=== PATIENT | male | born 1995 | race Caucasian/White ===

== ENCOUNTER 2017-07-31 12:11 | Emergency (ER) | payer BC ==
[2017-07-31] MEDS ORDERED: HYDROmorphone 0.5 MG/0.5 ML SYRINGE IVPUSH ONE (12:22)
[2017-07-31] MEDS ORDERED: Ondansetron 4 MG/2 ML SDV IVPUSH ONE (12:22)
[2017-07-31] MEDS ORDERED: Sodium Chloride 0.9% 10 ML Syringe FLUSH PRN (12:24)
--- NOTE | 2017-07-31 12:28 | EDM.PDOC ---
ED HPI GENERAL MEDICAL PROBLEM - General Chief Complaint: Upper Extremity Injury/Pain Stated Complaint: SHOULDER DISLOCATION Time Seen by Provider: 07/31/17 12:18 Source of Information: Reports: Patient History Limitations: Reports: No Limitations - History of Present Illness INITIAL COMMENTS - FREE TEXT/NARRATIVE: Patient is a 22-year-old male with a history of right shoulder dislocations presents to the ED complaining of right shoulder dislocated. 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 This occurred at approximately 11:00. There was no trauma associated with this incident. He has been evaluated by orthopedic surgeon with suggestion and have the surgery. States her some light tingling noted to the upper arm. He is able to flex and extend his wrists, alt his thumb and hitchhiker position against resistance, and abduction of the fingers against resistance as well. No sensory motor deficits distally. Patient drank coffee this morning. Last meal was supper last night. Right Shoulder Pain Score (Numeric/FACES): 10 - Related Data Allergies Allergy/AdvReac Type Severity Reaction Status Date / Time No Known Allergies Allergy Verified 07/31/17 12:25 Home Meds: Home Meds Acetaminophen/HYDROcodone [[place] 325-5 MG] 1 tab PO Q6H PRN #5 tablet 07/31/17 [ Rx] Review of Systems - Review of Systems Review Of Systems: ROS reveals no pertinent complaints other than HPI. ED EXAM, GENERAL - Physical Exam Exam: See Below Exam Limited By: No Limitations General Appearance: Alert, WD/WN, Moderate Distress Ears: Hearing Grossly Normal Nose: Normal Inspection Throat/Mouth: Normal Voice, No Airway Compromise Neck: Normal Inspection, Supple Respiratory/Chest: No Respiratory Distress, No Accessory Muscle Use Cardiovascular: Normal Peripheral Pulses, Regular Rate, Rhythm Peripheral Pulses: 4+: Radial (R) Extremities: Other (Right shoulder squared off with decreased range of motion noted secondary to pain. Slight numbness per patient to the right upper arm. No sensory motor deficits distally.) Neurological: Alert, Oriented, CN II-XII Intact, Normal Cognition, No Motor/ Sensory Deficits Psychiatric: Normal Affect, Normal Mood Skin Exam: Warm, Dry, Intact, Normal Color, No Rash ED TRAUMA EXTREMITY PROCEDURES - Joint Reduction Site: Shoulder (R) Sedation: Conscious Sedation Pre-Procedure NV Status: Normal Post-Procedure NV Status: Normal Technique: Traction/Counter Traction Number of Attempts: 1 Post-Reduction Imaging: Completely Reduced Joint Reduction Complications: No Course - Vital Signs Last Recorded V/S: Last Vital Signs Temp 98.5 F 07/31/17 12:21 Pulse 77 07/31/17 12:21 Resp 20 07/31/17 13:01 BP 161/103 H 07/31/17 12:21 Pulse Ox 97 07/31/17 13:01 - Orders/Labs/Meds Orders: Active Orders 24 hr Category Date Time Status Communication Order [RC] ASDIRECTED Care 07/31/17 12:24 Active Peripheral IV Care [RC] . DIRECTED Care 07/31/17 12:24 Active Shoulder 1V Rt [CR] Stat Exams 07/31/17 13:24 Taken Shoulder Comp Rt [CR] Stat Exams 07/31/17 12:22 Taken Sodium Chloride 0.9% [Saline Flush] Med 07/31/17 12:24 Active 10 ml FLUSH ASDIRECTED PRN Peripheral IV Insertion Adult [OM.PC] Routine Oth 07/31/17 12:24 Ordered Medication Orders Sodium Chloride (Saline Flush) 10 ml FLUSH ASDIRECTED PRN PRN Reason: Keep Vein Open Last Admin: 07/31/17 12:36 Dose: 10 ml Meds: Medications Generic Name Dose Route Start Last Admin Trade Name Freq PRN Reason Stop Dose Admin Sodium Chloride 10 ml 07/31/17 12:24 07/31/17 12:36 Saline Flush FLUSH 10 ml ASDIRECTED PRN Administration Keep Vein Open Discontinued Medications Generic Name Dose Route Start Last Admin Trade Name Freq PRN Reason Stop Dose Admin Fentanyl 50 mcg 07/31/17 12:46 07/31/17 13:13 Sublimaze IVPUSH 07/31/17 12:47 50 mcg ONETIME ONE Administration Fentanyl Confirm 07/31/17 13:22 Sublimaze Administered 07/31/17 13:23 Dose 250 mcg .ROUTE .STK-MED ONE Hydromorphone HCl 0.5 mg 07/31/17 12:22 07/31/17 12:32 Dilaudid IVPUSH 07/31/17 12:23 0.5 mg ONETIME ONE Administration Lactated Ringer's Confirm 07/31/17 13:10 Ringers, Lactated Administered 07/31/17 13:11 Dose 1,000 mls @ as directed .ROUTE .STK-MED ONE Lidocaine HCl Confirm 07/31/17 13:24 Xylocaine-Mpf 1% Administered 07/31/17 13:25 Dose 4 mls @ as directed .ROUTE .STK-MED ONE Ketamine HCl Confirm 07/31/17 13:22 Ketalar Administered 07/31/17 13:23 Dose 500 mg .ROUTE .STK-MED ONE Midazolam HCl Confirm 07/31/17 13:22 Versed 1 Mg/Ml Administered 07/31/17 13:23 Dose 2 mg .ROUTE .STK-MED ONE Ondansetron HCl 4 mg 07/31/17 12:22 07/31/17 12:34 Zofran IVPUSH 07/31/17 12:23 4 mg ONETIME ONE Administration Propofol Confirm 07/31/17 13:21 Diprivan 20 Ml Administered 07/31/17 13:22 Dose 600 mg .ROUTE .STK-MED ONE Sodium Chloride Confirm 07/31/17 13:23 Saline Flush Administered 07/31/17 13:24 Dose 30 ml .ROUTE .STK-MED ONE - Re-Assessments/Exams Free Text/Narrative Re-Assessment/Exam: X-ray of the right shoulder will be obtained. IV established with Dilaudid 0.5 mg IVP and also Zofran 4 mg IVP. Anesthesia has been called in for conscious sedation. Patient had minimal relief with dilaudid. Ordered fentanyl 50 mcq IVP. 07/31/17 13:24 Shoulder dislocation reduced with gentle traction/ countertraction. Dr. Peterson assisted. Post reduction film ordered. Sling/ Swath placed. 07/31/17 13:37 Postreduction film revealed humeral head back into proper anatomical position. Once patient has been determined to be stable to leave Will do so. Discharge instructions have been completed. 1346 Patient is doing much better post reduction. Pain is minimal. Departure - Departure Time of Disposition: 13:29 Disposition: Home, Self-Care 01 Condition: Good Clinical Impression: Shoulder dislocation, recurrent Qualifiers: Laterality: right Qualified Code(s): M24.411 - Recurrent dislocation, right shoulder - Discharge Information Prescriptions: Acetaminophen/HYDROcodone [[place] 325-5 MG] 1 tab PO Q6H PRN #5 tablet PRN Reason: Pain (Severe 7-10) Instructions: Shoulder Dislocation, How to Use a Sling, [id number], Shoulder Dislocation, [id number] Referrals: PCP,None [Primary Care Provider] - Rodolfo Welch MD [Physician] - Forms: ED Department Discharge Additional Instructions: Right shoulder anterior dislocation was successfully reduced with conscious sedation. X-rays of the right shoulder did not reveal any bony abnormalities. Suggest wearing the sling and swath for the next 3 days refraining from any activities that require the arm to be pulled away away from the body and overhead. Place ice to the affected area 4-6 times daily, 20 minutes in duration, do not place ice directly on the skin. Utilize Tylenol and ibuprofen in alternating fashion for pain. For severe pain may use [place] one tab every [address] nor while taking the [place]. Over the next three days complete the exercise as demonstrated. Call and make an appt with to be evaluated in the next wk to 10 days. Return to the E.D. for any new or worsening symptoms. - My Orders Last 24 Hours: My Active Orders 07/31/17 12:22 Shoulder Comp Rt [CR] Stat 07/31/17 12:24 Communication Order [RC] ASDIRECTED Peripheral IV Care [RC] . DIRECTED Sodium Chloride 0.9% [Saline Flush] 10 ml FLUSH ASDIRECTED PRN Peripheral IV Insertion Adult [OM.PC] Routine 07/31/17 13:24 Shoulder 1V Rt [CR] Stat - Assessment/Plan Last 24 Hours: My Active Orders 07/31/17 12:22 Shoulder Comp Rt [CR] Stat 07/31/17 12:24 Communication Order [RC] ASDIRECTED Peripheral IV Care [RC] . DIRECTED Sodium Chloride 0.9% [Saline Flush] 10 ml FLUSH ASDIRECTED PRN Peripheral IV Insertion Adult [OM.PC] Routine 07/31/17 13:24 Shoulder 1V Rt [CR] Stat
[2017-07-31] MEDS: fentaNYL 100 MCG/2 ML SDV IVPUSH ONE ×2 (12:50→13:13)
--- NOTE | 2017-07-31 13:01 | PCM.PREANE ---
Preanesthetic Assessment - Procedure Proposed Procedure: Right Shoulder Reduction - Anesthesia/Transfusion/Family Hx Anesthesia History: Prior Anesthesia Without Reaction Family History of Anesthesia Reaction: No Transfusion History: No Prior Transfusion(s) - Review of Systems General: No Symptoms Pulmonary: No Symptoms Cardiovascular: No Symptoms Gastrointestinal: Other (Heart burn, none currently.) Neurological: No Symptoms Other: Reports: None - Physical Assessment NPO Status Date: 07/31/17 NPO Status Time: 06:00 O2 Sat by Pulse Oximetry: 97 Respiratory Rate: 20 Vital Signs: Last Vital Signs Temp 36.9 C 07/31/17 12:21 Pulse 77 07/31/17 12:21 Resp 20 07/31/17 12:21 BP 161/103 H 07/31/17 12:21 Pulse Ox 97 07/31/17 12:21 Height: 1.85 m Weight: 95.254 kg ASA Class: 1E Mental Status: Alert & Oriented x3 Airway Class: Mallampati = 2 Dentition: Reports: Normal Dentition Thyro-Mental Finger Breadths: 3 Mouth Opening Finger Breadths: 3 ROM/Head Extension: Full Lungs: Clear to Auscultation, Normal Respiratory Effort Cardiovascular: Regular Rate, Regular Rhythm - Allergies Allergies/Adverse Reactions: Allergies Allergy/AdvReac Type Severity Reaction Status Date / Time No Known Allergies Allergy Verified 07/31/17 12:25 - Acknowledgements Anesthesia Type Planned: MAC Pt an Appropriate Candidate for the Planned Anesthesia: Yes Alternatives and Risks of Anesthesia Discussed w Pt/Guardian: Yes Pt/Guardian Understands and Agrees with Anesthesia Plan: Yes PreAnesthesia Questionnaire - Past Surgical History Musculoskeletal Surgical History: Reports: Arthroscopic Knee, Other (See Below) Other Musculoskeletal Surgeries/Procedures:: right shoulder dislocation several times - SUBSTANCE USE Smoking Status *Q: Never Smoker Recreational Drug Use History: No - HOME MEDS Home Medications: Home Meds . [No Known Home Meds] 07/31/17 [History] - CURRENT (IN HOUSE) MEDS Current Meds: Current Medications Sodium Chloride (Saline Flush) 10 ml FLUSH ASDIRECTED PRN PRN Reason: Keep Vein Open Last Admin: 07/31/17 12:36 Dose: 10 ml Discontinued Medications Fentanyl (Sublimaze) 50 mcg IVPUSH ONETIME ONE Stop: 07/31/17 12:47 Last Admin: 07/31/17 12:50 Dose: 50 mcg Hydromorphone HCl (Dilaudid) 0.5 mg IVPUSH ONETIME ONE Stop: 07/31/17 12:23 Last Admin: 07/31/17 12:32 Dose: 0.5 mg Ondansetron HCl (Zofran) 4 mg IVPUSH ONETIME ONE Stop: 07/31/17 12:23 Last Admin: 07/31/17 12:34 Dose: 4 mg
[2017-07-31] MEDS ORDERED: Lactated Ringers 1,000 ML ONE (13:10)
[2017-07-31] MEDS ORDERED: Lactated Ringers 1,000 ML IV ONE (13:10)
[2017-07-31] MEDS ORDERED: fentaNYL 100 MCG/2 ML SDV IVPUSH ONE (13:12)
[2017-07-31] MEDS ORDERED: Propofol 200 MG/20 ML SDV ONE (13:21)
[2017-07-31] MEDS ORDERED: fentaNYL 250 MCG/5 ML SDV ONE (13:22)
[2017-07-31] MEDS ORDERED: Ketamine 500 mg/10 ML MDV ONE (13:22)
[2017-07-31] MEDS ORDERED: Midazolam 1 MG/ML 2 ML SDV ONE (13:22)
[2017-07-31] MEDS ORDERED: Sodium Chloride 0.9% 10 ML Syringe ONE (13:23)
[2017-07-31] MEDS ORDERED: Lidocaine 1% 4 ML ONE (13:24)
--- NOTE | 2017-07-31 13:45 | PCM48HPAN ---
Post Anesthesia Note - EVALUATION WITHIN 48HRS OF ANESTHETIC Vital Signs in Normal Range: Yes Patient Participated in Evaluation: Yes Respiratory Function Stable: Yes Airway Patent: Yes Cardiovascular Function Stable: Yes Hydration Status Stable: Yes Pain Control Satisfactory: Yes Nausea and Vomiting Control Satisfactory: Yes Mental Status Recovered: Yes Pulse Rate: 81 SaO2: 96 Resp Rate: 20 Temperature: 36.9 C Blood Pressure: 153/83
--- NOTE | 2017-08-01 08:04 | CR ---
Right shoulder: Two views of the right shoulder were obtained. Anterior dislocation is seen in a subcoracoid location. No additional abnormality is seen on this study. Impression: 1. Right shoulder dislocation. Diagnostic code #3
--- NOTE | 2017-08-01 08:04 | CR ---
Right shoulder: Single AP view of the right shoulder was obtained. Comparison: Prior right shoulder study of 07/31/17 (12:16 PM). Previous dislocation has been reduced. No additional abnormality is seen. Impression: 1. Unremarkable AP right shoulder study. Diagnostic code #1
== END 2017-07-31 14:00 | disposition home or self-care (01) ==
LOC: SUPCPDRO 12:11 → JD.ED 12:11
DX: M24.411 Recurrent dislocation, right shoulder (principal)
CPT/HCPCS: 23655; 73020; 73030; 96361; 96374; 96375; 99284; J1170; J2250; J2405; J3010; J7050; J7120; J2704

== ENCOUNTER 2019-09-01 18:20 | Emergency (ER) | payer BC ==
[2019-09-01] MEDS ORDERED: HYDROmorphone 0.5 MG/0.5 ML Syringe IVPUSH ONE (18:41)
[2019-09-01] MEDS ORDERED: fentaNYL 100 MCG/2 ML SDV IVPUSH ONE ×2 (19:10→19:39)
[2019-09-01] MEDS ORDERED: fentaNYL 100 MCG/2 ML SDV ONE (19:11)
--- NOTE | 2019-09-01 19:56 | EDM.PDOC ---
ED HPI GENERAL MEDICAL PROBLEM - General Chief Complaint: Upper Extremity Injury/Pain Stated Complaint: R SHOULDER INJURY Time Seen by Provider: 09/01/19 18:47 Source of Information: Reports: Patient History Limitations: Reports: No Limitations - History of Present Illness INITIAL COMMENTS - FREE TEXT/NARRATIVE: She is a 24-year-old male who presents with complaints of right shoulder pain with likely dislocation. Patient was reaching for something in his truck when the shoulder popped out. He has a history of recurrent dislocations of the shoulder. States it is popped out about 5 times. Usually he can pop it back in himself, however he was unable to do that this time. He has been seen by orthopedist in the past and is aware that he needs surgery to repair this. He has full sensation of his lower of the arm and denies any numbness or tingling. Right Arm Pain Score (Numeric/FACES): 8 - Related Data Allergies Allergy/AdvReac Type Severity Reaction Status Date / Time No Known Allergies Allergy Verified 09/01/19 18:35 Home Meds: Home Meds . [No Known Home Meds] 09/01/19 [History] Past Medical History - Past Health History Medical/Surgical History: Denies Medical/Surgical History - Past Surgical History Musculoskeletal Surgical History: Reports: Arthroscopic Knee, Other (See Below) Other Musculoskeletal Surgeries/Procedures:: right shoulder dislocation several times Social & Family History - Family History Family Medical History: Noncontributory - Tobacco Use Smoking Status *Q: Never Smoker Second Hand Smoke Exposure: No - Caffeine Use Caffeine Use: Reports: Coffee - Recreational Drug Use Recreational Drug Use: No Review of Systems - Review of Systems Review Of Systems: Comprehensive ROS is negative, except as noted in HPI. ED EXAM, GENERAL - Physical Exam Exam: See Below Exam Limited By: No Limitations General Appearance: Alert, WD/WN, Mild Distress Respiratory/Chest: No Respiratory Distress, Lungs Clear, Normal Breath Sounds, No Accessory Muscle Use, Chest Non-Tender Cardiovascular: Normal Peripheral Pulses, Regular Rate, Rhythm, No Edema, No Gallop, No JVD, No Murmur, No Rub Extremities: Other Neurological: Alert, Oriented Psychiatric: Normal Affect, Normal Mood Skin Exam: Warm (Obvious deformity to the right shoulder. Positive sulcus sign. Patient's mother is holding the arm at a 90 degree angle for comfort.), Dry, Intact, Normal Color, No Rash ED TRAUMA EXTREMITY PROCEDURES - Joint Reduction Right Shoulder Sedation: Conscious Sedation Pre-Procedure NV Status: Normal Post-Procedure NV Status: Normal Technique: Traction/Counter Traction Number of Attempts: 1 Post-Reduction Imaging: Completely Reduced Joint Reduction Complications: No Joint Reduction Complication Description: Anesthesia provided by FATOU Vega. Shoulder reduced at 2027 without difficulty. Sling and swath applied after post reduction x-ray confirmed placement. Course - Vital Signs Last Recorded V/S: Last Vital Signs Temp 97.9 F 09/01/19 18:32 Pulse 66 09/01/19 18:32 Resp 19 09/01/19 18:32 BP 167/91 H 09/01/19 18:32 Pulse Ox 100 09/01/19 18:32 - Orders/Labs/Meds Orders: Active Orders 24 hr Category Date Time Status Shoulder 1V Rt [CR] Routine Exams 09/01/19 20:31 Taken DME for Discharge [COMM] Stat Oth 09/01/19 20:12 Ordered Meds: Medications Discontinued Medications Generic Name Dose Route Start Last Admin Trade Name Gómez PRN Reason Stop Dose Admin Fentanyl 50 mcg 09/01/19 19:10 09/01/19 19:16 Sublimaze IVPUSH 09/01/19 19:11 50 mcg ONETIME ONE Administration Fentanyl Confirm 09/01/19 19:11 09/01/19 19:16 Sublimaze Administered 09/01/19 19:12 Not Given Dose 100 mcg .ROUTE .STK-MED ONE Fentanyl 50 mcg 09/01/19 19:39 09/01/19 19:47 Sublimaze IVPUSH 09/01/19 19:40 50 mcg ONETIME ONE Administration Hydromorphone HCl 0.5 mg 09/01/19 18:41 09/01/19 18:46 Dilaudid IVPUSH 09/01/19 18:42 0.5 mg ONETIME ONE Administration Lidocaine HCl Confirm 09/01/19 20:16 Xylocaine-Mpf 1% Administered 09/01/19 20:17 Dose 4 mls @ as directed .ROUTE .STK-MED ONE Propofol Confirm 09/01/19 20:16 Diprivan 20 Ml Administered 09/01/19 20:17 Dose 400 mg .ROUTE .STK-MED ONE - Re-Assessments/Exams Free Text/Narrative Re-Assessment/Exam: 09/01/19 19:55 X-rays were obtained and show an anterior inferior dislocation of the right shoulder. [facility] has been contacted to provide anesthesia for a reduction. Appropriate procedural consent has been obtained. Patient has been medicated with a total of Dilaudid 0.5 mg and 2 doses of fentanyl 50 mcg. 09/01/19 20:42 Right shoulder was able to be reduced without difficulty. See procedure notes. Patient will be discharged home with instructions to follow-up with orthopedics once he is alert and safe to go home. Discharge instructions as documented. Departure - Departure Time of Disposition: 20:46 Disposition: Home, Self-Care 01 Condition: Good Clinical Impression: Shoulder dislocation, recurrent Qualifiers: Laterality: right Qualified Code(s): M24.411 - Recurrent dislocation, right shoulder - Discharge Information *PRESCRIPTION DRUG MONITORING PROGRAM REVIEWED*: No *COPY OF PRESCRIPTION DRUG MONITORING REPORT IN PATIENT DON: No Instructions: Shoulder Dislocation Referrals: Rodolfo Welch MD [Physician] - Forms: ED Department Discharge Additional Instructions: You were seen in the emergency department today for a right shoulder dislocation. After anesthesia, the shoulder did reduce back into place easily. A sling and swath has been applied. Recommend that she wear this for the next few days. Recommend that you follow-up with Dr. Welch regarding your recurrent shoulder dislocations. You may use Tylenol or ibuprofen as needed for pain. You may also ice the joint intermittently over the next couple days. Return to the emergency department as needed. Sepsis Event Note - Evaluation Sepsis Screening Result: No Definite Risk - Focused Exam Vital Signs: Vital Signs Temp Pulse Resp BP Pulse Ox 09/01/19 18:32 97.9 F 66 19 167/91 H 100 Date Exam was Performed: 09/01/19 Time Exam was Performed: 20:41 - My Orders Last 24 Hours: My Active Orders 09/01/19 20:12 DME for Discharge [COMM] Stat 09/01/19 20:31 Shoulder 1V Rt [CR] Routine - Assessment/Plan Last 24 Hours: My Active Orders 09/01/19 20:12 DME for Discharge [COMM] Stat 09/01/19 20:31 Shoulder 1V Rt [CR] Routine
--- NOTE | 2019-09-01 20:14 | PCM.PREANE ---
Preanesthetic Assessment - Procedure Proposed Procedure: Right shoulder close reduction - Anesthesia/Transfusion/Family Hx Anesthesia History: Prior Anesthesia Without Reaction Transfusion History: No Prior Transfusion(s) - Review of Systems General: No Symptoms Pulmonary: No Symptoms Cardiovascular: No Symptoms Gastrointestinal: No Symptoms Neurological: No Symptoms Other: Reports: None - Physical Assessment NPO Status Date: 09/01/19 NPO Status Time: 12:00 Vital Signs: Last Vital Signs Temp 97.9 F 09/01/19 18:32 Pulse 66 09/01/19 18:32 Resp 19 09/01/19 18:32 BP 167/91 H 09/01/19 18:32 Pulse Ox 100 09/01/19 18:32 Height: 1.85 m Weight: 103.419 kg ASA Class: 1E Mental Status: Alert & Oriented x3 Airway Class: Mallampati = 1 Dentition: Reports: Normal Dentition Thyro-Mental Finger Breadths: 3 Mouth Opening Finger Breadths: 3 ROM/Head Extension: Full Lungs: Clear to Auscultation, Normal Respiratory Effort Cardiovascular: Regular Rate, Regular Rhythm - Allergies Allergies/Adverse Reactions: Allergies Allergy/AdvReac Type Severity Reaction Status Date / Time No Known Allergies Allergy Verified 09/01/19 18:35 - Acknowledgements Anesthesia Type Planned: General Anesthesia, MAC Pt an Appropriate Candidate for the Planned Anesthesia: Yes Alternatives and Risks of Anesthesia Discussed w Pt/Guardian: Yes Pt/Guardian Understands and Agrees with Anesthesia Plan: Yes PreAnesthesia Questionnaire - Past Health History Medical/Surgical History: Denies Medical/Surgical History - Past Surgical History Musculoskeletal Surgical History: Reports: Arthroscopic Knee, Other (See Below) Other Musculoskeletal Surgeries/Procedures:: right shoulder dislocation several times - SUBSTANCE USE Smoking Status *Q: Never Smoker Second Hand Smoke Exposure: No Recreational Drug Use History: No - HOME MEDS Home Medications: Home Meds . [No Known Home Meds] 09/01/19 [History] - CURRENT (IN HOUSE) MEDS Current Meds: Current Medications Discontinued Medications Fentanyl (Sublimaze) 50 mcg IVPUSH ONETIME ONE Stop: 09/01/19 19:11 Last Admin: 09/01/19 19:16 Dose: 50 mcg Fentanyl (Sublimaze) Confirm Administered Dose 100 mcg .ROUTE .STK-MED ONE Stop: 09/01/19 19:12 Last Admin: 03/28/20 19:16 Dose: Not Given Fentanyl (Sublimaze) 50 mcg IVPUSH ONETIME ONE Stop: 09/01/19 19:40 Last Admin: 09/01/19 19:47 Dose: 50 mcg Hydromorphone HCl (Dilaudid) 0.5 mg IVPUSH ONETIME ONE Stop: 09/01/19 18:42 Last Admin: 09/01/19 18:46 Dose: 0.5 mg
[2019-09-01] MEDS ORDERED: Lidocaine 1% 4 ML ONE (20:16)
[2019-09-01] MEDS ORDERED: Propofol 200 MG/20 ML SDV ONE (20:16)
--- NOTE | 2019-09-01 20:22 | CR ---
Right shoulder: 3 views the right shoulder were obtained. Comparison: Previous right shoulder study of 07/31/17. Anterior subcoracoid dislocation is seen. No acute fracture or other bony abnormality is seen. Impression: 1. Dislocated right shoulder. Diagnostic code #3 Study was dictated in MDT
--- NOTE | 2019-09-01 20:45 | PCM48HPAN ---
Post Anesthesia Note - EVALUATION WITHIN 48HRS OF ANESTHETIC Vital Signs in Normal Range: Yes Patient Participated in Evaluation: Yes Respiratory Function Stable: Yes Airway Patent: Yes Cardiovascular Function Stable: Yes Hydration Status Stable: Yes Pain Control Satisfactory: Yes Nausea and Vomiting Control Satisfactory: Yes Mental Status Recovered: Yes Vital Signs: Last Vital Signs Temp 97.9 F 09/01/19 18:32 Pulse 66 09/01/19 18:32 Resp 19 09/01/19 18:32 BP 167/91 H 09/01/19 18:32 Pulse Ox 100 09/01/19 18:32 Post anesthesia vital signs BP: 133/86 HR 89 RR 19 SpO2 98% T 98.8 F
--- NOTE | 2019-09-02 07:23 | CR ---
Right shoulder: AP view of the right shoulder was obtained. Comparison: Prior's shoulder study performed earlier on the same day (7:16 PM). Previous dislocation has been reduced. Glenohumeral alignment appears normal on current study. Acromioclavicular joint is normal. No fracture or other bony abnormality is identified. Impression: 1. Previous dislocation has been reduced. Diagnostic code #1 This report was dictated in MDT
== END 2019-09-01 21:15 | disposition home or self-care (01) ==
LOC: JD.ED 18:20
DX: M24.411 Recurrent dislocation, right shoulder (principal)
CPT/HCPCS: 23650; 73020; 73030; 99283; J1170; J2001; J2704; J3010; 01620; 23655

== ENCOUNTER 2023-02-06 09:15 | Emergency (ER) | payer SELFPAY ==
[2023-02-06] MEDS ORDERED: Sodium Chloride 0.9% 10 ML Syringe FLUSH PRN (09:28)
[2023-02-06] MEDS ORDERED: Ketorolac 30 MG/ML SDV IVPUSH ONE (09:41)
[2023-02-06] MEDS ORDERED: fentaNYL 100 MCG/2 ML SDV IVPUSH ONE (09:41)
[2023-02-06] MEDS ORDERED: fentaNYL 100 MCG/2 ML SDV ONE (10:20)
[2023-02-06] MEDS ORDERED: Lidocaine 2% with EPINEPHrine 1:200,000 20 ML SDV ONE (10:21)
[2023-02-06] MEDS ORDERED: Midazolam 1 MG/ML 2 ML SDV ONE (10:21)
[2023-02-06] MEDS ORDERED: Sodium Bicarbonate 8.4% 50 MEQ/50 ML SDV ONE (11:52)
== END 2023-02-06 11:45 | disposition home or self-care (01) ==
LOC: JD.ED 09:15
DX: M24.411 Recurrent dislocation, right shoulder (principal)
CPT/HCPCS: 23650; 73030; 96374; 99283; J1885; J3010; J3490; 64415; 99284